=== PATIENT | female | born 1950 | race Hispanic/Latino ===

== ENCOUNTER 2024-05-08 13:31 | Emergency (ER) | payer MEDICARE ==
[~2024-05-08] VITALS: Ht 162.6 cm; Wt 86.2 kg
[2024-05-08 13:44] VITALS: PULSE 74; RESP 16; TEMP 97.6; O2SAT 100
== END 2024-05-08 14:35 | disposition home or self-care (01) ==
LOC: ER 13:35
DX: I49.8 Other specified cardiac arrhythmias (principal); I10 Essential (primary) hypertension; E78.5 Hyperlipidemia, unspecified; E03.9 Hypothyroidism, unspecified
CPT/HCPCS: 99282